=== PATIENT | female | born 1990 | race Caucasian/White ===

== ENCOUNTER → 2017-12-15 | Outpatient (CLI) | payer OTHER ==
[~2017-12-15] MED LIST: ACETAMINOPHEN-1 EAC1 PO; ADIPEX-P37.5 MG PO; AFRIN15 ML NS; ALBUTEROL INH; AMOXICILLIN 50500 MG PO; AMOXICILLIN875 MG PO; AMOXIL 875 MG875 M1 PO; AUGMENTIN 875-1 EACH PO; AUGMENTIN 875875 MG PO; CEFTIN500 MG PO; CELEXA20 MG PO; CIPROFLOXIN HC2.5 M1 OTIC; CLARITIN10 MG PO; FLEXERIL PO; FLONASE; FLONASE 0.05%50 MCG NS; HYDROCODONE-AP1 EAC6 PO; IBUPROFEN 800800 M1 PO; MEDROLDOSEPACK PO; METFORMIN HCL500 MG PO; NAPROSYN500 MG PO; NOHOMEMEDICATIONS; NORCO 5-325 TA1 EAC1 PO; NORCO 5-325 TA1 EACH PO; PENICILLIN V P500 MG PO; PENICILLIN VK500 M1 PO; PHENTERMINE H37.5 MG; PREDNISONE 10 M10 M1 PO; TESSALON200 MG PO; TRAMADOL 50 MG50 MG PO; ULTRAM 50MG TAB50 MG PO; VISTARIL 25 MG25 M1 OR; ZANAFLEX4 MG PO; ZOLOFT25 MG PO; ZPAK PO
== END ==
LOC: M.RAD 10:11
DX: M54.5 Low back pain (principal); M53.3 Sacrococcygeal disorders, not elsewhere classified

== ENCOUNTER 2018-10-15 19:59 | Emergency (ER) | payer OTHER ==
[~2018-10-15] VITALS: Ht 177.8 cm; Wt 136.1 kg
[2018-10-15] MEDS ORDERED: MIRENA1 EACH INTRAUTERI (20:09)
[2018-10-15] MEDS ORDERED: OXYCODONE-IBUP1 EACH PO (20:45)
[2018-10-15 20:52] VITALS: BP 137/62
== END 2018-10-15 20:55 | disposition home or self-care (01) ==
LOC: M.ERS 19:59
DX: K08.89 Other specified disorders of teeth and supporting structures (principal); F17.210 Nicotine dependence, cigarettes, uncomplicated

== ENCOUNTER 2018-10-19 17:38 | Emergency (ER) | payer OTHER ==
[~2018-10-19] VITALS: Ht 172.7 cm; Wt 136.1 kg
[~2018-10-19 17:38] MED LIST changes: +MIRENA1 EACH INTRAUTERI; +OXYCODONE-IBUP1 EACH PO
[2018-10-19] MEDS ORDERED: LIDOCAINE VISC100 ML PO (18:00)
[2018-10-19] MEDS ORDERED: ACETAMINOPHEN-1 EAC1 PO (18:00)
[2018-10-19 18:05] VITALS: BP 158/84
== END 2018-10-19 18:13 | disposition home or self-care (01) ==
LOC: M.ERS 17:38
DX: K08.89 Other specified disorders of teeth and supporting structures (principal); F17.210 Nicotine dependence, cigarettes, uncomplicated

== ENCOUNTER 2018-12-11 22:07 | Emergency (ER) | payer OTHER ==
[~2018-12-11] VITALS: Ht 177.8 cm; Wt 136.1 kg
[~2018-12-11 22:07] MED LIST changes: +LIDOCAINE VISC100 ML PO
[2018-12-11 22:14] VITALS: BP 151/92
[2018-12-11] MEDS ORDERED: AMOXICILLIN 50500 MG PO (22:16)
[2018-12-11] MEDS ORDERED: LIDOCAINE VISC100 ML PO (22:22)
[2018-12-11] MEDS ORDERED: ULTRAM50 MG PO (22:22)
== END 2018-12-11 22:26 | disposition home or self-care (01) ==
LOC: M.ERS 22:07
DX: K08.89 Other specified disorders of teeth and supporting structures (principal); F17.210 Nicotine dependence, cigarettes, uncomplicated

== ENCOUNTER 2019-06-23 03:03 | Emergency (ER) | payer OTHER ==
[~2019-06-23] VITALS: Ht 177.8 cm; Wt 113.4 kg
[~2019-06-23 03:03] MED LIST changes: +ULTRAM50 MG PO
[2019-06-23] MEDS ORDERED: NASONEX17 GM NASAL (03:14)
[2019-06-23] MEDS ORDERED: AMOXICILLIN875 MG PO (03:14)
[2019-06-23] MEDS ORDERED: TYLENOL WITH CO1 TA1 PO (03:14)
[2019-06-23 03:18] VITALS: BP 134/65
== END 2019-06-23 03:20 | disposition home or self-care (01) ==
LOC: M.ERS 03:03
DX: H92.02 Otalgia, left ear (principal); R59.0 Localized enlarged lymph nodes; F17.210 Nicotine dependence, cigarettes, uncomplicated

== ENCOUNTER 2020-02-28 13:52 | Emergency (ER) | payer OTHER ==
[~2020-02-28] VITALS: Ht 177.8 cm; Wt 122.5 kg
[~2020-02-28 13:52] MED LIST changes: +NASONEX17 GM NASAL; +TYLENOL WITH CO1 TA1 PO
[2020-02-28 14:00] VITALS: BP 123/73
[2020-02-28] MEDS ORDERED: KEFLEX500 M1 PO (14:17)
[2020-02-28] MEDS ORDERED: CENTANY30 GM TOP (14:17)
== END 2020-02-28 14:28 | disposition home or self-care (01) ==
LOC: M.ERS 13:52
DX: S91.301A Unspecified open wound, right foot, initial encounter (principal); F17.210 Nicotine dependence, cigarettes, uncomplicated; W57.XXXA Bitten or stung by nonvenomous insect and other nonvenomous arthropods, initial encounter; Y93.89 Activity, other specified; Y92.89 Other specified places as the place of occurrence of the external cause; Y99.8 Other external cause status

== ENCOUNTER 2020-11-01 20:45 | Emergency (ER) | payer OTHER ==
[~2020-11-01] VITALS: Ht 177.8 cm; Wt 102.1 kg
[~2020-11-01 20:45] MED LIST changes: +CENTANY30 GM TOP; +KEFLEX500 M1 PO
[2020-11-01] MEDS ORDERED: ANUSOL-HC30 GM TOP (21:00)
[2020-11-01 21:09] VITALS: BP 151/82
== END 2020-11-01 21:10 | disposition home or self-care (01) ==
LOC: M.ERS 20:45
DX: K64.4 Residual hemorrhoidal skin tags (principal); F17.210 Nicotine dependence, cigarettes, uncomplicated

== ENCOUNTER 2021-04-23 17:27 | Emergency (ER) | payer OTHER ==
[~2021-04-23] VITALS: Ht 177.8 cm; Wt 95.3 kg
[~2021-04-23 17:27] MED LIST changes: +ANUSOL-HC30 GM TOP
[2021-04-23 18:27] VITALS: BP 117/90
--- NOTE | 2021-04-24 10:11 | EKG ---
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
== END 2021-04-23 18:28 | disposition left against medical advice (07) ==
LOC: M.ERS 17:27
DX: R07.89 Other chest pain (principal); Z20.822 Contact with and (suspected) exposure to COVID-19; Z53.21 Procedure and treatment not carried out due to patient leaving prior to being seen by health care provider